=== PATIENT | female | born 1985 | race Caucasian/White ===

== ENCOUNTER 2019-02-16 10:08 | Emergency (ER) | payer BC ==
[~2019-02-16] VITALS: Ht 156.2 cm; Wt 66.7 kg
[2019-02-16 10:10] VITALS: BP 102/61
--- NOTE | 2019-02-16 10:16 | NUR ---
PT AMB TO BED 12 WITH STEADY GAIT
--- NOTE | 2019-02-16 10:19 | NUR ---
PT AMB TO RESTROOM FOR URINE SAMPLE
--- NOTE | 2019-02-16 10:31 | NUR ---
PT PRESENTS TO ED WITH C/O 05/19 FLANK PAIN X 1 DAY. DENIES ANY S/S OF URINARY PROBLEMS. +FEVER; TOOK MOTRIN 800MG TODAY AT APPROX 10AM; AFEBRILE AT THIS TIME. +NAUSEA/NO VOMITING, DIARRHEA REPORTED. CHANGED TO GOWN, CONNECTED TO MONITOR. VSS. ERMD TO EVALUATE PT.
[2019-02-16] MEDS ORDERED: NACL 0.9% 1,000 ML IV ONE (10:40)
[2019-02-16] MEDS ORDERED: ONDANSETRON 4 MG/2 ML VIAL IVP ONE (10:40)
[2019-02-16] MEDS ORDERED: MORPHINE SULFATE 4 MG/ML SYR IVP ONE (10:40)
[2019-02-16] MEDS ORDERED: KETOROLAC 30 MG/ML VIAL IVP ONE (10:40)
[2019-02-16] MEDS ORDERED: NACL 0.9% 2,000 ML IV SCH (10:40)
[2019-02-16 11:05] LABS: BASOPHILS % (AUTO) 0.4 % (0.0-2.0); EOSINOPHILS % (AUTO) 0.1 % (0.0-4.0); HEMOGLOBIN 13.1 g/dL (12.0-16.0); LYMPHOCYTES # (AUTO) 0.5 K/uL (2.5-16.5); LYMPHOCYTES % (AUTO) 5.2 % (20.5-51.1); MEAN CORPUSCULAR HEMOGLOBIN 32 pg (27-31); MEAN CORPUSCULAR HGB CONC 34 g/dL (33-37); MONOCYTES # (AUTO) 0.7 K/uL (0.8-1.0); NEUTROPHILS # (AUTO) 7.5 K/uL (1.8-7.7); NEUTROPHILS % (AUTO) 86.3 % (42.2-75.2); PLATELET COUNT (AUTO) 183 K/uL (140-450); RED BLOOD CELL COUNT(AUTO) 4.11 MIL/uL (4.20-5.40); RED CELL DISTRIBUTION WIDTH 13.6 % (11.6-13.7); WHITE BLOOD COUNT (AUTO) 8.7 K/uL (4.8-10.8)
[2019-02-16 11:20] LABS: APPEARANCE,URINE SL CLOUDY (CLEAR); BILIRUBIN,URINE NEGATIVE (NEGATIVE); BLOOD, URINE 1+ (NEGATIVE); COLOR,URINE YELLOW (YELLOW); LEUKOCYTE ESTERASE ,URINE TRACE (NEGATIVE); NITRITE, URINE NEGATIVE (NEGATIVE); UGLUCOSE NEGATIVE (NEGATIVE)
[2019-02-16 11:26] LABS: BARBITURATE, URINE NEG. ng/ml (NEG <=200); BENZODIAZEPINE, URINE NEG. ng/mL (NEG <=200); CANNABINOID, URINE NEG. ng/mL (NEG <=50); COCAINE, URINE NEG. ng/mL (NEG <=300); OPIATE, URINE NEG. ng/mL (NEG <=2000); PHENCYCLIDINE SCREEN,URINE NEG. ng/mL (NEG <=25)
[2019-02-16 11:27] LABS: ANION GAP 13.9 (8-16); CARBON DIOXIDE 23.8 mmol/L (21-32); CREATININE 0.8 mg/dL (0.6-1.3); POTASSIUM 3.7 mmol/L (3.5-5.1)
[2019-02-16 11:32] LABS: RBC,URINE 0-5 /HPF (0-5)
[2019-02-16 11:33] LABS: ALBUMIN 3.6 g/dL (3.4-5.0); TOTAL BILIRUBIN 0.8 mg/dL (0.0-1.0)
[2019-02-16] MEDS ORDERED: LEVOFLOXACIN 500 MG TAB PO ONE (12:50)
--- NOTE | 2019-02-16 13:24 | NUR ---
IV removed, catheter intact and site benign. Applied folded 4x4 gauze and tape to stop bleeding.
[2019-02-16 13:25] VITALS: BP 112/61
--- NOTE | 2019-02-16 13:26 | NUR ---
Patient discharged with v/s stable. Written and verbal after care instructions given and explained. Patient alert, oriented and verbalized understanding of instructions. Ambulatory with steady gait. All questions addressed prior to discharge. ID band removed. Patient advised to follow up with PMD. Rx of levaquin and tylenol given. Patient educated on indication of medication including possible reaction and side effects. Opportunity to ask questions provided and answered.
--- NOTE | 2019-02-21 13:55 | NUR ---
Late entry. Confirmed with RN that 100ml 0.9 NS IV infused until 1324.
== END 2019-02-16 13:26 | disposition home or self-care (01) ==
LOC: MED 10:08
DX: N39.0 Urinary tract infection, site not specified (principal); M54.5 Low back pain; R10.31 Right lower quadrant pain; Z88.0 Allergy status to penicillin
CPT/HCPCS: 36415; 74176; 80053; 80305; 81001; 81003; 81025; 82150; 83605; 83690; 85025; 87040; 87086; 96374; 96375; 99284; J1885; J2270; J2405; J7030